=== PATIENT | female | born 1990 | race Caucasian/White ===

== ENCOUNTER 2021-08-24 08:24 | Emergency (ER) | payer SELFPAY ==
[~2021-08-24] VITALS: Ht 157.5 cm; Wt 87.2 kg
[2021-08-24 08:36] VITALS: BP 121/75
--- NOTE | 2021-08-24 08:46 | NUR ---
Patient ambulated with steady gait to bed 3.
[2021-08-24] MEDS ORDERED: KETOROLAC 30 MG/ML VIAL IM ONE (09:00)
--- NOTE | 2021-08-24 09:13 | NUR ---
LAB AT BEDSIDE
[2021-08-24 09:21] LABS: BASOPHILS # (AUTO) 0.1 K/uL (0.00-0.22); BASOPHILS % (AUTO) 0.8 % (0.0-2.0); EOSINOPHILS # (AUTO) 0.3 K/uL (0-0.4); EOSINOPHILS % (AUTO) 4.8 % (0.0-4.0); HEMATOCRIT 39.9 % (36-48); HEMOGLOBIN 13.2 g/dL (12.0-16.0); LYMPHOCYTES # (AUTO) 2.1 K/uL (2.5-16.5); LYMPHOCYTES % (AUTO) 33.8 % (20.5-51.1); MEAN CORPUSCULAR HEMOGLOBIN 27 pg (27-31); MEAN CORPUSCULAR HGB CONC 33 g/dL (33-37); MEAN CORPUSCULAR VOLUME 82.6 fL (80-94); MONOCYTES # (AUTO) 0.7 K/uL (0.8-1.0); MONOCYTES % (AUTO) 11.6 % (1.7-9.3); NEUTROPHILS # (AUTO) 3.1 K/uL (1.8-7.7); PLATELET COUNT (AUTO) 243 K/uL (140-450); RED BLOOD CELL COUNT(AUTO) 4.83 MIL/uL (4.20-5.40); WHITE BLOOD COUNT (AUTO) 6.3 K/uL (4.8-10.8)
--- NOTE | 2021-08-24 09:22 | NUR ---
ULTRASOUND AT BEDSIDE
[2021-08-24 09:37] LABS: ALBUMIN 3.4 g/dL (3.4-5.0); CARBON DIOXIDE 28.1 mmol/L (21-32); CREATININE 0.7 mg/dL (0.6-1.3); POTASSIUM 4.1 mmol/L (3.5-5.1); TOTAL BILIRUBIN 0.4 mg/dL (0.0-1.0)
--- NOTE | 2021-08-24 09:40 | NUR ---
31/F BIB SELF WITH C/O RIGHT FLANK PAIN RADIATING TO RUQ X3 DAYS. PATIENT REPORTS 7/10, SHARP/DULL PAIN THAT IS PROVOKED BY TOUCH AND MOVEMENT. DENIES INJURY OR TRAUMA, STATES SHE TOOK IBUPROFEN AT HOME WITH NO RELIEF. DENIES N/V/D, URINARY PAIN, CP OR SOB.
--- NOTE | 2021-08-24 10:50 | NUR ---
PATIENT APPEARS TO BE RESTING IN BED, AWAITING RESULTS. ALL NEEDS MET AT THIS TIME.
[2021-08-24] MEDS ORDERED: CEPH-588 PO (11:40)
--- NOTE | 2021-08-24 11:58 | NUR ---
Patient discharged with v/s stable. Written and verbal after care instructions ABOUT PYELONEPHRITIS given and explained. Patient alert, oriented and verbalized understanding of instructions. Ambulatory with steady gait. All questions addressed prior to discharge. ID band removed. Patient advised to follow up with PMD. Rx of KEFLEX given. Patient educated on indication of medication including possible reaction and side effects. Opportunity to ask questions provided and answered.
[2021-08-24 11:59] VITALS: BP 98/58
--- NOTE | 2021-08-24 12:05 | NUR ---
The patient's care was reviewed and supervised by Sherri Cui RN.
== END 2021-08-24 11:58 | disposition home or self-care (01) ==
LOC: MED 08:24
DX: N12 Tubulo-interstitial nephritis, not specified as acute or chronic (principal); R05.9 Cough, unspecified; Z88.1 Allergy status to other antibiotic agents
CPT/HCPCS: 36415; 74176; 76705; 80053; 81002; 81025; 82150; 83690; 85025; 96372; 99285; J1885; Q0092

== ENCOUNTER 2022-02-24 21:15 | Emergency (ER) | payer SELFPAY ==
[~2022-02-24] VITALS: Ht 157.5 cm; Wt 82.1 kg
[~2022-02-24 21:15] MED LIST: CEPH-588 PO
[2022-02-24 21:49] VITALS: BP 108/73
--- NOTE | 2022-02-24 21:56 | NUR ---
PATIENT TO THE BATHROOM FOR URINE COLLECTION
--- NOTE | 2022-02-24 22:56 | NUR ---
JAIDEN CALLED PATIENT- NO ANSWER AT THIS TIME
--- NOTE | 2022-02-24 23:04 | NUR ---
CALLED FOR PATIENT NO ANSWER
--- NOTE | 2022-02-24 23:04 | NUR ---
PATIENT LEFT WITHOUT BEING SEEN BY DR. ROSE. NO FURTHER CARE PROVIDED FOR PATIENT.
== END 2022-02-24 22:56 | disposition left against medical advice (07) ==
LOC: MED 21:15
DX: M54.9 Dorsalgia, unspecified (principal); Z53.21 Procedure and treatment not carried out due to patient leaving prior to being seen by health care provider
CPT/HCPCS: 81002; 81025